=== PATIENT | female | born 1970 | race Caucasian/White ===

== ENCOUNTER 2024-12-26 16:00 | Emergency (ER) | payer OTHER, SELFPAY ==
[2024-12-26 16:01] VITALS: BP 122/74
--- NOTE | 2024-12-26 16:29 | ED.GENMED ---
History of Present Illness
General
Chief Complaint: Flank Pain
Source: patient
Exam Limitations: none
Time Seen by Provider: 12/26/24 16:17
History of Present Illness
History of Present Illness:
54-year-old female otherwise healthy takes no medications regularly presents complaining of intermittent twinge and discomfort to the right flank that radiates to the lower abdomen. This was preceded by foul-smelling urine. She initially spoke
with [facility] and they started her on cefdinir for potential UTI. She has had a total of 4 doses of this but she still notes a fever as high as 101. She went to an urgent care yesterday and was found to have blood in her urine and was advised to
come to the emergency room last night. She came to the ER last night however saw the waiting room and left right away. She has persistent fever but denies nausea. She notes discomfort in her right flank when she urinates. She also notes some
lower left abdominal discomfort. No other complaints at this time
Phy Exam
Physical Exam
Physical Exam:
General: Well-appearing female no acute respiratory distress
HEENT: Normal cephalic atraumatic
Heart: Regular rate and rhythm
Lungs: Clear no wheeze
Abdomen soft slightly tender in suprapubic region no guarding or rebound nondistended no significant costovertebral angle tenderness
Course
Orders/Labs/Results
Orders:
Orders
12/26/24 16:27
0.9% Sodium Chloride 1000 ml [Nss] 1,000 ml IV BOLUS
12/26/24 16:29
CT Abd/pel Without Iv Or Oral Urgent
Comment:
Reason For Exam: right flank pain
12/26/24 16:38
Complete Blood Count/With Diff Urgent
Comprehensive Metabolic Panel Urgent
Urinalysis Reflex To Culture Urgent
Date Specimen was Collected: 12/26/24
Time Specimen was Collected: 16:31
Urine Microscopic Reflex Cult Urgent
Blood Culture Q30M
MARLENI Source: Blood/Venous
Specimen Description:
Blood Culture Q30M
MARLENI Source: Blood/Venous
Specimen Description:
12/26/24 19:27
MetroNIDAZOLE [Flagyl] 500 mg PO NOW STA
Abnormal Lab Results
12/26/24
16:38
RBC 4.05 L 10^6/uL
(4.20-5.40)
Hct 35.0 L %
(37.0-47.0)
Sodium 128 L mmol/L
(135-145)
Chloride 93 L mmol/L
(98-107)
Creatinine 0.5 L mg/dL
(0.6-1.0)
Glucose 101 H mg/dl
(70-99)
Ur Occult Blood Reflex 2+ A
(Negative)
12/26/24 16:38
12/26/24 16:38
Vital Signs
Initial and Last Documented VS:
Initial Vital Signs
Pulse Resp BP Pulse Ox
76 18 122/74 99
12/26/24 16:01 12/26/24 16:01 12/26/24 16:01 12/26/24 16:01
Last Documented Vital Signs
Temp Pulse Resp BP Pulse Ox
99.6 F 76 18 122/74 99
12/26/24 16:06 12/26/24 16:01 12/26/24 16:01 12/26/24 16:01 12/26/24 16:31
MDM/Problems Addressed
Differential Diagnosis Includes:
Patient with right flank discomfort urinary symptoms and lower abdominal discomfort. Differential could include cystitis versus ascending UTI and concerned about sepsis given ongoing fever. Also consider diverticulitis versus kidney stone. Will
check labs blood cultures hydrate with fluids and CT.
*Pulse Oximetry
SaO2: 99
Oxygen Mode of Delivery: Room air
Patient hypoxic: no
*Critical Care Note
Total Time (30-74mins, 75-104mins- exclusive of procedures): Not Applicable
Update Note
Update Note:
CT shows potential stranding around the distal colon. Diverticulitis cannot be excluded. There is small amount of blood in the urine but no sign of infection. No kidney stone. Patient was somewhat tender in the left lower abdomen. Sodium is
128. She was given fluids through the IV here. Will add Flagyl to her cefdinir to treat for diverticulitis. Return precautions given. She was advised that blood cultures were drawn and she will get a call if they are positive
ED Attending Note
-
Portions of this chart may have been created with voice recognition software.� Occasional wrong word or��sound alike� substitutions may have occurred due to the inherent limitations of voice recognition software.
Discharge Plan
Departure
Patient Disposition: Home (Routine Discharge)
Date of Disposition: 12/26/24
Time of Disposition: 19:29
Patient with high blood pressure during this ER visit?: No
Discharge Problem:
Acute diverticulitis
Instructions: Diverticulitis
Prescriptions:
New
metronidazole 500 mg tablet
500 mg PO TID Qty: 20 0RF
No Action
docosahexaenoic acid-epa 1 CAP capsule
1 cap PO DAILY
escitalopram oxalate 5 MG tablet
5 mg PO HS
Referrals:
Mario Conrad R, DO [Family Provider]
Activity Restrictions/Additional Instructions:
Continue with cefdinir. Drink plenty of fluids. Use Flagyl as directed. Return here for increasing pain persistent fever or other concerning finding. Follow-up with your doctor otherwise in the next 2 weeks for recheck of your blood work as your
sodium was slightly low today
Interventions
Interventions:
*Risk Screen - Suicide Last Done: 12/26/24 16:01
*General Assessment Last Done: 12/26/24 16:01
*Neglect/Abuse Screening Last Done: 12/26/24 16:01
KJ-Jyzgoo-Fehloprluh Assessment Last Done: 12/26/24 16:44
ED-Female Genitourinary Assessment Last Done: 12/26/24 16:44
Discharge Date and Time
Print Language: GERMAN
[2024-12-26] MEDS: NSS 1000 IV (16:41)
[2024-12-26 16:43] VITALS: BMI 25.0
[2024-12-26 16:49] LABS: Hematocrit 35.0 % (37.0-47.0); Hemoglobin 12.0 g/dL (12.0-16.0); Mean Corp Hgb Conc. 34.3 g/dL (33.0-37.0); Mean Corpuscular Volume 86.4 fL (81.0-99.0); Nucleated Red Blood Cells % 0 %; Platelet Count 219 10^3/uL (130-400); Red Cell Dist. Width 11.9 % (11.5-14.5)
[2024-12-26 17:08] LABS: ALT (SGPT) 13 U/L (0-35); AST (SGOT) 19 U/L (14-36); Albumin 4.2 g/dl (3.5-5.0); Alkaline Phosphatase 44 U/L (38-126); Blood Urea Nitrogen 13 mg/dl (7-17); Calcium 8.9 mg/dl (8.4-10.2); Carbon Dioxide 28 mmol/L (22-30); Chloride 93 mmol/L (98-107); Estimated Creatinine Clearance 90 ml/min; Glucose 101 mg/dl (70-99); Potassium 3.8 mmol/L (3.5-5.1); Sodium 128 mmol/L (135-145); Total Protein 7.1 g/dl (6.3-8.2); eGFR > 60.00
[2024-12-26 17:13] LABS: Urine Character Clear (Clear)
[2024-12-26 17:40] LABS: Urine Red Blood Cell 0-2 /HPF (0-2); Urine Squamous Cell 0-2 /LPF (Few); Urine White Cell 0-2 /HPF (0-5)
[2024-12-26] MEDS: FLAGYL 500 MG PO (19:50)
[2024-12-26 19:58] VITALS: BP 120/70
== END 2024-12-26 19:59 | disposition home or self-care (01) ==
LOC: EMR 16:00
PROVIDERS: Physician Assistant; EMERGENCY PHYSICIAN Emergency Medicine; FAMILY PHYSICIAN Internal Medicine
DX: K57.32 Diverticulitis of large intestine without perforation or abscess without bleeding (principal)
CPT/HCPCS: 99284; 96360; 74176; 80053; 81003; 81015; 85025; 87040